=== PATIENT | male | born 1995 | race Caucasian/White ===

== ENCOUNTER 2019-01-01 20:26 | Emergency (ER) | payer SELFPAY ==
[2019-01-01 20:44] VITALS: BP 103/64
--- NOTE | 2019-01-01 21:53 | UC ---
Ear Complaint HPI - HPI Summary HPI Summary: PATIENT COMPLAINS OF RIGHT EAR FEELING CLOGGED WITH MUFFLED HEARING AND CRACKLING AND INTERMITTENT DIZZINESS FOR THE PAST 4-5 MONTHS. HAS AN APPOINTMENT WITH ENT UPCOMING ON 01/10/19. STATES HE CAME IN TODAY BECAUSE IT WAS "DRIVING HIM CRAZY". PATIENT DENIES ANY FEVER OR OTHER URI SYMPTOMS. DIZZINESS NOT WORSE WITH CHANGE IN HEAD POSITION. - History of Current Complaint Chief Complaint: UCGeneralIllness Stated Complaint: EAR ACHE Time Seen by Provider: 01/01/19 21:20 Hx Obtained From: Patient Onset/Duration: Gradual Onset, Lasting Weeks, Still Present Severity Initially: Moderate Severity Currently: Moderate Pain Intensity: 4 Pain Scale Used: 0-10 Numeric Aggravating Factors: Nothing Alleviating Factors: Nothing Associated Signs/Symptoms: Positive: Hearing Loss. Negative: Discharge, URI Symptoms - Allergies/Home Medications Allergies/Adverse Reactions: Allergies Allergy/AdvReac Type Severity Reaction Status Date / Time No Known Allergies Allergy Verified 01/01/19 20:44 Home Medications: Home Medications NK [No Home Medications Reported] 01/01/19 [History Confirmed 01/01/19] PMH/Surg Hx/FS Hx/Imm Hx Previously Healthy: Yes - Surgical History Surgical History: Yes Surgery Procedure, Year, and Place: shoulder surgery - Family History Known Family History: Positive: Non-Contributory - Social History Alcohol Use: Occasionally Substance Use Type: None Smoking Status (MU): Never Smoked Tobacco Review of Systems All Other Systems Reviewed And Are Negative: Yes Constitutional: Positive: Negative ENT: Positive: Ear Ache Respiratory: Positive: Negative Cardiovascular: Positive: Negative Gastrointestinal: Positive: Negative Physical Exam Triage Information Reviewed: Yes Appearance: Well-Appearing, No Pain Distress, Well-Nourished Vital Signs: Initial Vital Signs Temp 99.1 F 01/01/19 20:40 Pulse 86 01/01/19 20:40 Resp 18 01/01/19 20:40 BP 103/64 01/01/19 20:40 Pulse Ox 100 01/01/19 20:40 Vital Signs Reviewed: Yes Eyes: Positive: Conjunctiva Clear ENT: Positive: Hearing grossly normal, Pharynx normal, TMs normal, Other - NONOBSTRUCTIVE CERUMEN RIGHT EAC Neck: Positive: Supple, Nontender, No Lymphadenopathy Respiratory: Positive: No respiratory distress, No accessory muscle use Cardiovascular: Positive: Pulses Normal Abdomen Description: Positive: Soft Musculoskeletal: Positive: No Edema Neurological: Positive: Alert Psychological: Positive: Age Appropriate Behavior Skin: Negative: Rashes Ear Complaint Course/Dx - Course Course Of Treatment: SMALL PLUG OF NONOBSTRUCTIVE CERUMEN REMOVED FROM RIGHT EAR BY Cee EARDRUM LOOKS NORMAL. NO FLUID SEEN. NO DIZZINESS ELICITED WITH CHANGE IN HEAD POSITION. PATIENT ALREADY HAS AN APPOINTMENT WITH ENT IN A WEEK AND A HALF ON . ADVISED HIM TO KEEP THIS APPOINTMENT AND SEEK FOLLOW-UP EITHER HERE OR AT [facility] IF HIS SYMPTOMS WORSEN IN THE MEANTIME. - Differential Dx/Diagnosis Provider Diagnosis: Right ear pain Discharge - Sign-Out/Discharge Documenting (check all that apply): Patient Departure All imaging exams completed and their final reports reviewed: No Studies - Discharge Plan Condition: Stable Disposition: HOME Patient Education Materials: Earache (ED) Referrals: [facility] [Provider Group] - If Needed Additional Instructions: UNCLEAR CAUSE OF YOUR SYMPTOMS TODAY. YOUR EARDRUM APPEARS NORMAL. SMALL AMOUNT OF CERUMEN REMOVED TODAY BUT IT WAS NONOBSTRUCTIVE. KEEP YOUR ENT APPOINTMENT ON 01/10/19. - Billing Disposition and Condition Condition: STABLE Disposition: Home
== END 2019-01-01 21:54 | disposition home or self-care (01) ==
LOC: UCEAST 20:26
DX: H92.01 Otalgia, right ear (principal)
CPT/HCPCS: 99201; G0463

== ENCOUNTER 2019-11-28 17:52 | Emergency (ER) | payer BC ==
--- NOTE | 2019-11-28 18:09 | ED ---
Abdominal Pain/Male - HPI Summary HPI Summary: Complains of constant right upper quadrant pain 6 months, with associated chronic fatigue, "mental haziness", and decreased sex drive 2 months. Abdominal pain described as varying from a dull discomfort to a 4/10 pain. Random onset, not worsened with eating. Patient states he noticed pain is worse with drinking, and has stopped drinking for 2 weeks, with no change in symptoms. States occasional EtOH use prior to past 2 weeks. Denies fever, cough, sore throat, CP, SOB, N/V/D, change in appetite, change in urine, change in BM, or testicular symptoms. Medical history is none. Abdominal surgical history is none. - History of Current Complaint Chief Complaint: EDGeneral Stated Complaint: LIVER ISSUES PER PT Time Seen by Provider: 11/28/19 18:06 Hx Obtained From: Patient Onset/Duration: Gradual Onset, Lasting Weeks Timing: Constant Severity Initially: Mild Severity Currently: Moderate Pain Intensity: 4 Pain Scale Used: 0-10 Numeric Location: Discrete At: RUQ Radiates: No Character: Dull Aggravating Factor(s): Other: Alleviating Factor(s): Nothing Associated Signs And Symptoms: Positive: Negative - Allergies/Home Medications Allergies/Adverse Reactions: Allergies Allergy/AdvReac Type Severity Reaction Status Date / Time doxycycline Allergy Hives Verified 11/28/19 17:59 Home Medications: Home Medications NK [No Home Medications Reported] 01/01/19 [History Confirmed 11/28/19] PMH/Surg Hx/FS Hx/Imm Hx Endocrine/Hematology History: Denies: Hx Anticoagulant Therapy Cardiovascular History: Denies: Hx Pacemaker/ICD Respiratory History: Denies: Hx Chronic Obstructive Pulmonary Disease (COPD) History: Denies: Hx Dialysis Sensory History: Denies: Hx Eye Prosthesis Opthamlomology History: Denies: Hx Legally Blind EENT History: Denies: Hx Deafness Neurological History: Denies: Hx Dementia - Surgical History Surgery Procedure, Year, and Place: shoulder surgery Infectious Disease History: No Infectious Disease History: Denies: Traveled Outside the [place] in Last 30 Days - Family History Known Family History: Positive: Non-Contributory - Social History Alcohol Use: Occasionally Substance Use Type: Reports: None Smoking Status (MU): Never Smoked Tobacco Review of Systems Positive: Fatigue Eyes: Negative ENT: Negative Cardiovascular: Negative Respiratory: Negative Positive: Abdominal Pain Genitourinary: Negative Musculoskeletal: Negative Skin: Negative Neurological/Mental Status: Negative Psychological: Normal All Other Systems Reviewed And Are Negative: Yes Physical Exam Triage Information Reviewed: Yes Vital Signs On Initial Exam: Initial Vitals Temp Pulse Resp BP Pulse Ox 99.4 F 107 16 147/81 99 11/28/19 17:54 11/28/19 17:54 11/28/19 17:54 11/28/19 17:54 11/28/19 17:54 Vital Signs Reviewed: Yes Appearance: Positive: Well-Appearing Skin: Positive: Warm Head/Face: Positive: Normal Head/Face Inspection Eyes: Positive: Normal Neck: Positive: Supple Respiratory/Lung Sounds: Positive: Clear to Auscultation Cardiovascular: Positive: Normal Abdomen Description: Positive: Other: - Right upper quadrant tenderness. Musculoskeletal: Positive: Normal Neurological: Positive: Normal Psychiatric: Positive: Normal AVPU Assessment: Alert - [place] Coma Scale Best Eye Response: 4 - Spontaneous Best Motor Response: 6 - Obeys Commands Best Verbal Response: 5 - Oriented Coma Scale Total: 15 Procedures - Sedation Patient Received Moderate/Deep Sedation with Procedure: No Diagnostics - Vital Signs Vital Signs Temp Pulse Resp BP Pulse Ox 11/28/19 17:54 99.4 F 107 16 147/81 99 - Laboratory Result Diagrams: 11/28/19 18:40 11/28/19 18:40 Lab Statement: Any lab studies that have been ordered have been reviewed, and results considered in the medical decision making process. Abdominal Pain Male Course/Dx - Course Course Of Treatment: Complains of constant right upper quadrant pain 6 months, with associated chronic fatigue, "mental haziness", and decreased sex drive 2 months. Abdominal pain described as varying from a dull discomfort to a 4/10 pain. Random onset, not worsened with eating. Patient states he noticed pain is worse with drinking, and has stopped drinking for 2 weeks, with no change in symptoms. States occasional EtOH use prior to past 2 weeks. Denies fever, cough, sore throat, CP, SOB, N/V/D, change in appetite, change in urine, change in BM, or testicular symptoms. Medical history is none. Abdominal surgical history is none. Vital signs within normal limits. Labs unremarkable. Ultrasound of liver/gallbladder negative. - Diagnoses Provider Diagnoses: Right upper quadrant pain, Fatigue Discharge ED - Sign-Out/Discharge Documenting (check all that apply): Patient Departure - Discharge Plan Condition: Stable Disposition: HOME Patient Education Materials: Fatigue (ED) Referrals: No Primary Care Phys,NOPCP [Primary Care Provider] - [facility] [Outside] Additional Instructions: Call [facility] to arrange for appointment for further evaluation. Return to the ED for any new or worsening symptoms - Billing Disposition and Condition Condition: STABLE Disposition: Home
[2019-11-28 18:50] LABS: ABS Lymphocytes 1.1 10^3/ul (1.0-4.8); ABS Monocytes 0.4 10^3/ul (0-0.8); ABS Neutrophils 2.9 10^3/ul (1.5-7.7); Eosinophil % 0.8 %; Hematocrit 46 % (42-52); Hemoglobin 15.7 g/dL (14.0-18.0); Mean Corpuscular HGB Conc 34 g/dL (31-36); Mean Corpuscular Hemoglobin 33 pg (27-31); Mean Corpuscular Volume 95 fL (80-94); Mean Platelet Volume 8.1 fL (7.4-10.4); Nucleated Red Blood Cells % 0.1; Platelet Count 186 10^3/uL (150-450); Red Blood Count 4.82 10^6 /uL (4.18-5.48); Red Cell Distribution Width 14 % (10-15); White Blood Count 4.5 10^3/uL (3.5-10.8)
[2019-11-28 19:08] LABS: ALT 40 U/L (7-52); AST 28 U/L (13-39); Albumin 4.4 g/dL (3.2-5.2); Albumin/Globulin Ratio 1.7 (1-3); Alkaline Phosphatase 48 U/L (34-104); Anion Gap 5 mmol/L (2-11); BUN/Creatinine Ratio 12.2 (8-20); Blood Urea Nitrogen 12 mg/dL (6-24); C Reactive Protein < 1.00 mg/L (<8.01); CO2 Carbon Dioxide 30 mmol/L (22-32); Calcium 9.6 mg/dL (8.6-10.3); Chloride 102 mmol/L (101-111); EGFR African American 113.7 (>60); Globulin 2.6 g/dL (2-4); Glucose 102 mg/dL (70-100); Potassium 4.1 mmol/L (3.5-5.0); Sodium 137 mmol/L (135-145)
[2019-11-28 20:07] VITALS: BP 128/72
== END 2019-11-28 20:06 | disposition home or self-care (01) ==
LOC: ED 17:52
DX: R10.11 Right upper quadrant pain (principal); R53.83 Other fatigue; Z88.8 Allergy status to other drugs, medicaments and biological substances
CPT/HCPCS: 36415; 76705; 80053; 85025; 86140; 99282